=== PATIENT | male | born 1950 | race Caucasian/White ===

== ENCOUNTER 2024-08-13 06:30 | Observation (INO) ==
--- NOTE | 2024-07-09 11:03 | PAT Medication Instructions ---
Medication Instructions Date of Service July 09, 2024 Home Medications Medication Instructions Recorded amlodipine 10 mg tablet 10 mg PO QAM #90 tabs 09/25/23 lisinopril 40 mg tablet 40 mg PO QAM #90 tabs 09/25/23 hydrochlorothiazide 25 mg tablet 25 mg PO QAM #90 tabs 12/31/23 doxazosin 8 mg tablet 8 mg PO HS #90 tabs 02/11/24 tamsulosin 0.4 mg capsule (Flomax) 0.8 mg (2 x 0.4 mg) PO HS #180 caps 02/24/24 trazodone 50 mg tablet 50 mg PO HS #90 tabs 02/24/24 ipratropium bromide 21 mcg (0.03 2 spray intranasal BID #30 mL 02/26/24 %) nasal spray multivit,Ca,min-iron 8 mg-folic acid 200 mcg-lycopene 600 mcg tablet (Centrum Men) 1 tab PO QAM psyllium husk 3.4 gram/5.4 gram oral powder (Metamucil) 1 tbsp PO QAM sildenafil 100 mg tablet 100 mg PO UD PRN sexual activity tavaborole 5 % topical solution with applicator 1 applic topical DAILY amlodipine 10 mg tablet 10 mg PO QAM lisinopril 40 mg tablet 40 mg PO QAM ferrous gluconate 256 mg (28 mg iron) tablet 256 mg PO Q2D hydrochlorothiazide 25 mg tablet 25 mg PO QAM mecobalamin (vitamin B12) 500 mcg chewable tablet 500 mcg PO DAILY doxazosin 8 mg tablet 8 mg PO HS tamsulosin 0.4 mg capsule (Flomax) 0.8 mg (2 x 0.4 mg) PO HS trazodone 50 mg tablet 50 mg PO HS ipratropium bromide 21 mcg (0.03 %) nasal spray 2 spray intranasal BID amoxicillin 500 mg tablet 2,000 mg PO UD PRN dental procedures buspirone 10 mg tablet 10 mg PO HS cholecalciferol (vitamin D3) 50 mcg (2,000 unit) capsule (Vitamin D3) 50 mcg PO HS imiquimod 5 % topical cream packet 1 applic topical UD metformin 500 mg tablet,extended release 24 hr 500 mg PO BIDWMEAL weight loss Continue as directed amoxicillin 500 mg tablet 2,000 mg PO UD PRN dental procedures (if needed) STOP taking 24 hours before surgery sildenafil 100 mg tablet 100 mg PO UD PRN sexual activity tavaborole 5 % topical solution with applicator 1 applic topical DAILY imiquimod 5 % topical cream packet 1 applic topical UD DO NOT take the morning of surgery multivit,Ca,min-iron 8 mg-folic acid 200 mcg-lycopene 600 mcg tablet (Centrum Men) 1 tab PO QAM psyllium husk 3.4 gram/5.4 gram oral powder (Metamucil) 1 tbsp PO QAM lisinopril 40 mg tablet 40 mg PO QAM ferrous gluconate 256 mg (28 mg iron) tablet 256 mg PO Q2D hydrochlorothiazide 25 mg tablet 25 mg PO QAM mecobalamin (vitamin B12) 500 mcg chewable tablet 500 mcg PO DAILY metformin 500 mg tablet,extended release 24 hr 500 mg PO BIDWMEAL weight loss Take morning of surgery With a small sip of water, OTHERWISE NOTHING TO EAT OR DRINK AFTER MIDNIGHT: amlodipine 10 mg tablet 10 mg PO QAM ipratropium bromide 21 mcg (0.03 %) nasal spray 2 spray intranasal BID Take evening before surgery doxazosin 8 mg tablet 8 mg PO HS tamsulosin 0.4 mg capsule (Flomax) 0.8 mg (2 x 0.4 mg) PO HS trazodone 50 mg tablet 50 mg PO HS ipratropium bromide 21 mcg (0.03 %) nasal spray 2 spray intranasal BID buspirone 10 mg tablet 10 mg PO HS cholecalciferol (vitamin D3) 50 mcg (2,000 unit) capsule (Vitamin D3) 50 mcg PO HS metformin 500 mg tablet,extended release 24 hr 500 mg PO BIDWMEAL weight loss Other Notes If you have any questions please call us at [phone] or [phone] or [phone] or [phone]
--- NOTE | 2024-07-13 12:03 | Anesthesiology Consultation ---
Date of Service July 13, 2024 Assessment & Plan (1) Encounter for pre-operative examination: Chart Review Chart Review: Acceptable Risk for Surgery and Patient seen in Pre Admission Testing - Discussed with Dr. Bloom due to pulmonary hx and SUSANA/BMI- it is recommended patient be changed from OPJ to 23 hour obs. Surgeon's office informed. Surgeon's office updated OR and patient. Possible ChloraPrep allergy with previous surgery (had rash post op above incision and was told possible reaction to ChloraPrep)- patient was instructed NOT to use chlorhexidine wipes. Patient can discuss with surgeon DOS of what type of prep to use - Check BSG AM DOS Per PAT appt on 07/13/24, no recent illness/disease exposures, illness related symptoms, or recent illness/disease positive tests. Will leave to surgeon's discretion if preop Covid testing needed Seen by cardio 06/15/24= seen for cardiology follow up. Mild ascending aorta dilatation. Suspected CVI. Hypertension. Type 2 DM. Patient doing well from a cardiac standpoint. Remains active without limiting cardiac symptoms. On exam no signs of heart failure. Recent echo stable. Plan to repeat in 2 years. Teaching & Discussion Pre-Anesthesia Teaching/Discussion Notes: Instructed NPO after midnight before surgery,except medications with 15 cc of water. Medication instructions provided according to the PAT guidelines. History Surgery Operation Date: 08/13/24 09:00 Proposed Procedures p Left Anatomic Total Shoulder Arthroplasty Versus Left Reverse Total Shoulder Arthroplasty - Oniel Rao, Height/Weight Height: 5 ft 11 in Weight: 137.8 kg Allergies Allergy/AdvReac Type Severity Reaction Status Date / Time chlorhexidine Allergy Intermediate Possible Verified 07/14/24 11:21 [From ChloraPrep Clear] allergy- rash isopropyl alcohol Allergy Intermediate Possible Verified 07/14/24 11:21 [From ChloraPrep Clear] allergy- rash Medications Home Medications Medication Instructions Recorded Confirmed Last Taken multivit,Ca,min-iron 8 mg-folic 1 tab PO QAM 06/03/23 07/08/24 09/28/23 acid 200 mcg-lycopene 600 mcg tablet (Centrum Men) psyllium husk 3.4 gram/5.4 gram 1 tbsp PO QAM regularity 06/03/23 07/08/24 09/27/23 oral powder (Metamucil) sildenafil 100 mg tablet 100 mg PO UD PRN sexual activity 12/27/23 10/17/24 Unknown tavaborole 5 % topical solution 1 applic topical DAILY 09/17/23 07/08/24 09/27/23 with applicator amlodipine 10 mg tablet 10 mg PO QAM #90 tabs 09/25/23 07/08/24 09/28/23 lisinopril 40 mg tablet 40 mg PO QAM #90 tabs 09/25/23 07/08/24 09/28/23 ferrous gluconate 256 mg (28 mg 256 mg PO Q2D 12/31/23 07/08/24 Unknown iron) tablet hydrochlorothiazide 25 mg tablet 25 mg PO QAM #90 tabs 12/31/23 07/08/24 Unknown mecobalamin (vitamin B12) 500 mcg 500 mcg PO DAILY 12/31/23 07/08/24 Unknown chewable tablet doxazosin 8 mg tablet 8 mg PO HS #90 tabs 02/11/24 07/08/24 Unknown tamsulosin 0.4 mg capsule (Flomax) 0.8 mg (2 x 0.4 mg) PO HS #180 caps 02/24/24 07/08/24 Unknown trazodone 50 mg tablet 50 mg PO HS #90 tabs 02/24/24 07/08/24 Unknown ipratropium bromide 21 mcg (0.03 2 spray intranasal BID #30 mL 02/26/24 07/08/24 Unknown %) nasal spray amoxicillin 500 mg tablet 2,000 mg PO UD PRN dental 07/08/24 07/08/24 Unknown procedures buspirone 10 mg tablet 10 mg PO HS 07/08/24 07/08/24 Unknown cholecalciferol (vitamin D3) 50 50 mcg PO HS 07/08/24 07/08/24 Unknown mcg (2,000 unit) capsule (Vitamin D3) imiquimod 5 % topical cream packet 1 applic topical UD 07/08/24 07/08/24 Unknown metformin 500 mg tablet,extended 500 mg PO BIDWMEAL weight loss 07/08/24 07/08/24 Unknown release 24 hr Past Medical History Medical History (Updated 07/14/24 @ 10:58 by Dora Irving PA-C) Anemia borderline/low rbc count...odd shaped blood cells...hx several oncology visits -no findings - no longer follows with heme Chronic rhinitis Chronic venous insufficiency Constipation Degenerative disc disease, lumbar Diverticulitis hx- no recent flares Elevated hemoglobin A1c borderline, hx>no current issues Hgb A1C 5.6 on 07/13/24 patient states on Metformin for weight loss (Type II DM in cardio records) Enlarged aorta monitored yearly with no change size; f/u Dr. Mota Per 05/2024 ECHO- "borderline ascending aorta at 3.7cm" Enlarged prostate Erectile dysfunction Extreme obesity reason for metformin>put on medication by his "weight dr" Fatty liver Heart murmur Dr. Mota- no significant valvular disease on 05/2024 ECHO History of COVID-19 06/02/24>resolved History of deviated nasal septum Minimal deviation per patient - did have sinus surgery 2010 Hypertension Leukopenia borderline LPRD (laryngopharyngeal reflux disease) hx MOLLY (mycobacterium avium-intracellulare) - 2021- s/p lung surgical bx (wedge resection of lung mass) May 2022. Following with infectious disease- monitoring recommended at present. - No current tx.; gets yearly CT scan to monitor - breathing stable Nocturia Sleep apnea cpap Wart of hand multiple hands Exercise / Class Metabolic Activity III < 4 Walking/Shop/Light housework (one flight of stairs - no chest pain or SOB - goes slow ) Past Family History Family History Brother AA (alcohol abuse) Lung cancer Father AA (alcohol abuse) Diabetes Sister Family history of uterine cancer Gall bladder disease Mother Gall bladder disease Past Surgical History Surgical History H/O colonoscopy History of appendectomy History of back surgery hardware. lumbar. History of esophagogastroduodenoscopy (EGD) History of lung biopsy robotically. 2021. abdominal bulge occured day after procedure/ct scan done to r/o hernia , pt reports he was told probably due to irritation of nerve. Pulmonoglist , Dr. Grimm. History of nasal septoplasty History of total left knee replacement History of total right knee replacement History of uvulopalatopharyngoplasty Past Anesthesia History No Hx of Anesthesia Complications and No Family Hx of Anesthesia Complications History of PONV No Hx of PONV and No Hx of Motion Sickness Social History Smoking Status: Former smoker Do You Dip or Chew Tobacco: No (quit 1985; advised by nursing ) Smoking End Date: 1985 Hx Alcohol Use: Yes Alcohol type: beer and wine alcohol intake frequency: holidays/special occasions only Hx Substance Use: No substance use type: does not use Review of Systems - Chronic post nasal drip - stable - Silent reflux per patient from ENT - Possible blood transfusion - 2020- with back surgery Patient denies chest pain, shortness of breath, dyspnea on exertion, cough, wheezing, palpitations. No hx of seizures, stroke, VT. No hx of blood clots Physical Exam Vital Signs VITALS BP 151/70 P 66 TEMP 97.7 SP02 96% RESP 16 Constitutional no acute distress ENMT Mouth: + small oral opening; no TMJ clicking Thyromental Distance: < 3.5 Finger Breadths (3.0) Mallampati Class: IV Permanent side implant Crowns to molars and side teeth Neck + limited neck extension (mild) Respiratory normal respiratory effort; no respiratory distress Auscultation: lungs clear to auscultation bilaterally; no wheezes Cardiovascular Rate/Rhythm: regular rate and regular rhythm Heart Sounds: + murmur (II/ murmur ) Vessels: no carotid bruit Musculoskeletal Spine: + pain with cervical ROM (mild) Extremities: extremities normal to inspection Psychiatric Orientation: alert Lab Results Anesthesia Preop Results Results Anesthesia Widget: WBC 3.59 K/ul (4.8-10.8) L 07/13/24 Hgb 12.5 g/dl (14.0-18.0) L 07/13/24 Hct 36.9 % (42.0-52.0) L 07/13/24 Plt 195 K/uL (130-400) 07/13/24 Na 137 mmol/L (136-145) 07/13/24 K 3.7 mmol/L (3.5-5.1) 07/13/24 Cl 103 mmol/L (98-107) 07/13/24 CO2 27 mmol/L (21-32) 07/13/24 BUN 17 mg/dl (6-23) 07/13/24 Creat 0.86 mg/dl (0.6-1.4) 07/13/24 Glucose Level 107 mg/dl (70-99(Fasting)) H 07/13/24 PT 11.0 Seconds (9.0-12.0) 07/13/24 PTT 28 Seconds (21-31) 07/13/24 INR 1.0 (0.9-1.1) 07/13/24 TSH 1.606 uIu/ml (0.300-4.500) 05/25/24 HA1c 5.6 % (4.5-5.6) 07/13/24 Blood Type B Positive 07/13/24 Antibody Screen NEGATIVE 07/13/24 Testing Electrocardiogram Date: 07/14/24 SR with 1st degree AVB at 62bpm Otherwise normal EKG per cardio Chest X-Ray Date: 07/13/24 FINDINGS: Lung volumes are normal. No consolidation is identified to suggest pneumonia. Postoperative findings within the right lower lobe are noted. The subpleural opacity on CT of October 31, 2023 is not well-visualized by radiography. There is no pneumothorax or pleural effusion. Mild cardiomegaly is noted. Mediastinal contours are normal. There is no evidence for pulmonary edema. IMPRESSION: No acute cardiopulmonary findings. Stable cardiomegaly. Echocardiogram Date: 06/11/24 EF: 55-60% LV Function: normal RWMA: + none Other Findings: + LVH (mild/concentric ) Mildly dilated RV, normal RV function AV sclerosis - moderate. No hemodynamically significant aortic stenosis Mild pulm HTN. Estimated PA 40-45mmHg. Est RA 15mmHg Borderline ascending aorta (3.7cm) Mildly dilated inferior vena cava Trivial pericardial effusion not hemodynamically significant Compared with prior study on 07/15/2023- mild pulm HTN is new. No other significant findings Stress Test Date: 03/10/20 Type: exercise No evidence of EKG changes to suggest ischemia Patient's exercise capacity is normal for age Calculated Schilling Treadmill Score of 4 (this is an intermediate risk score, which indicates a five year survival rate of 90%) Other Testing Chest CT 10/31/23= Findings suggestive of prior right lower lobe wedge resection. Stable right basilar nodular density compared to the 02/26/2023 exam, decreased in size and conspicuity compared to 06/19/2022. Findings are suggestive of scarring with round atelectasis. 6 month follow-up chest CT recommended. Unchanged right basilar pleural thickening with trace pleural effusion. No pneumothorax.
--- NOTE | 2024-08-11 07:45 | History & Physical Report ---
Date of Service August 11, 2024 Assessment & Plan (1) Osteoarthritis of left shoulder: We will proceed with a left anatomic total shoulder arthroplasty. Postoperatively he will be placed in a sling and kept overnight hospital for postop medical management. He plans to use energy physical therapy upon disch arge. History of Present Illness Chief Complaint: Osteoarthritis of the left shoulder. Primary Care Provider: Gal Krueger MD Jeanna is a pleasant 74-year-old male who has been dealing with chronic increasing left shoulder pain. I diagnosed him with advanced arthritis of his left shoulder at a previous visit. I gave him injections. The injections are not helping. He is really struggling doing things away from his body or up overhead. He is having trouble sleeping at night. And he failed conservative treatment, he has elected proceed with a left anatomic total shoulder arthroplasty. Allergies Allergy/AdvReac Type Severity Reaction Status Date / Time chlorhexidine Allergy Intermediate Possible Verified 08/02/24 08:04 [From ChloraPrep Clear] allergy- rash isopropyl alcohol Allergy Intermediate Possible Verified 08/02/24 08:04 [From ChloraPrep Clear] allergy- rash Home Medications Medication Instructions Recorded Confirmed Type multivit,Ca,min-iron 8 mg-folic 1 tab PO QAM 06/03/23 08/02/24 History acid 200 mcg-lycopene 600 mcg tablet (Centrum Men) psyllium husk 3.4 gram/5.4 gram 1 tbsp PO QAM regularity 06/03/23 08/02/24 History oral powder (Metamucil) sildenafil 100 mg tablet 100 mg PO UD PRN sexual activity 09/17/23 08/02/24 History tavaborole 5 % topical solution 1 applic topical DAILY 09/17/23 08/02/24 History with applicator amlodipine 10 mg tablet 10 mg PO QAM #90 tabs 09/25/23 08/02/24 Rx lisinopril 40 mg tablet 40 mg PO QAM #90 tabs 09/25/23 08/02/24 Rx ferrous gluconate 256 mg (28 mg 256 mg PO Q2D 12/31/23 08/02/24 History iron) tablet hydrochlorothiazide 25 mg tablet 25 mg PO QAM #90 tabs 12/31/23 08/02/24 Rx mecobalamin (vitamin B12) 500 mcg 500 mcg PO DAILY 12/31/23 08/02/24 History chewable tablet doxazosin 8 mg tablet 8 mg PO HS #90 tabs 02/11/24 08/02/24 Rx tamsulosin 0.4 mg capsule (Flomax) 0.8 mg (2 x 0.4 mg) PO HS #180 caps 02/24/24 08/02/24 Rx trazodone 50 mg tablet 50 mg PO HS #90 tabs 02/24/24 08/02/24 Rx ipratropium bromide 21 mcg (0.03 2 spray intranasal BID #30 mL 02/26/24 08/02/24 Rx %) nasal spray amoxicillin 500 mg tablet 2,000 mg PO UD PRN dental 07/08/24 08/02/24 History procedures cholecalciferol (vitamin D3) 50 50 mcg PO HS 07/08/24 08/02/24 History mcg (2,000 unit) capsule (Vitamin D3) imiquimod 5 % topical cream packet 1 applic topical UD 07/08/24 08/02/24 History metformin 500 mg tablet,extended 500 mg PO BIDWMEAL weight loss 07/08/24 08/02/24 History release 24 hr buspirone 10 mg tablet 10 mg PO HS #90 tabs 08/02/24 Rx Past Med/Surg History Problem List Osteoarthritis of left shoulder Nasal valve collapse History of deviated nasal septum LPRD (laryngopharyngeal reflux disease) Chronic rhinitis Rotator cuff arthropathy Constipation Encounter for pre-operative examination Abnormal CT scan of lung BPH associated with nocturia Erectile dysfunction Weakness Shoulder impingement Testicular cyst Hematuria Obstructive sleep apnea BMI 40.0-44.9, adult Iron deficiency Mild ascending aorta dilatation Chronic venous insufficiency History of knee replacement Fatty liver Arthritis Anemia History of colon polyps x1 Medical History History of COVID-19 06/02/24>resolved MOLLY (mycobacterium avium-intracellulare) - 2021- s/p lung surgical bx (wedge resection of lung mass) May 2022. Following with infectious disease- monitoring recommended at present. - No current tx.; gets yearly CT scan to monitor - breathing stable LPRD (laryngopharyngeal reflux disease) hx History of deviated nasal septum Minimal deviation per patient - did have sinus surgery 2010 Erectile dysfunction Constipation Chronic venous insufficiency Chronic rhinitis Extreme obesity reason for metformin>put on medication by his "weight dr" Degenerative disc disease, lumbar Diverticulitis hx- no recent flares Fatty liver Sleep apnea cpap Enlarged aorta monitored yearly with no change size; f/u Dr. Mota Per 05/2024 ECHO- "borderline ascending aorta at 3.7cm" Heart murmur Dr. Mota- no significant valvular disease on 05/2024 ECHO Elevated hemoglobin A1c borderline, hx>no current issues Hgb A1C 5.6 on 07/13/24 patient states on Metformin for weight loss (Type II DM in cardio records) Nocturia Wart of hand multiple hands Enlarged prostate Leukopenia borderline Anemia borderline/low rbc count...odd shaped blood cells...hx several oncology visits -no findings - no longer follows with heme Hypertension Surgical History History of esophagogastroduodenoscopy (EGD) History of nasal septoplasty History of uvulopalatopharyngoplasty History of total left knee replacement History of total right knee replacement History of lung biopsy robotically. 2021. abdominal bulge occured day after procedure/ct scan done to r/o hernia , pt reports he was told probably due to irritation of nerve. Pulmonoglist , Dr. Grimm. H/O colonoscopy History of appendectomy History of back surgery hardware. lumbar. Family History Brother AA (alcohol abuse) Lung cancer Father AA (alcohol abuse) Diabetes Sister Family history of uterine cancer Gall bladder disease Mother Gall bladder disease Social History Smoking Status: Former smoker Tobacco Type: Cigarettes and Cigars Age Started Using Tobacco: 17; Age Quit Using Tobacco: 36; Smoking End Date: 1985; Second Hand Exposure: No; Do You Dip or Chew Tobacco: No (quit 1985; advised by nursing ); Tobacco Cessation Education Requested by Patient: No Hx Alcohol Use: Yes Alcohol type: beer and wine Hx Substance Use: No Preferred Language: Thai Communication Ability: Effective Visual Impairment: No Limitations Hearing Ability: Normal Steward/Stewardess Tourist Class Required: No Beliefs That Will Affect Care: None marital status: / Current Living Situation: Significant Other current occupational status: retired Other Information That Helps Us Care for You: No Feels Safe at Home: Yes Safety Concerns: Feels Safe At This Time Childhood Exposure to Second-Hand Smoke: No Dental Care, Regularly: Yes Physical Activity Frequency: 1-2 Times per Week Seatbelt Use: always Assistive Devices: CPAP and Glasses Review of Systems All systems reviewed & are unremarkable except as noted in HPI & below. Physical Exam On physical exam the left shoulder, he has decreased range of motion. He has pain with internal/external rotation. He has good strength throughout. He has crepitus with range of motion.. Constitutional WD/WN, vitals as above Eyes PERRL, conjunctivae normal, anicteric sclerae ENMT external ear and nose normal, oropharynx normal Neck trachea midline, no thyromegaly Respiratory normal respiratory effort Cardiovascular RRR, no murmur, no edema Gastrointestinal (Abdomen) normal bowel sounds, soft, nontender, no hepatosplenomegaly Psychiatric A+Ox3, euthymic affect Results & Data Results & Data Laboratory Results . Diagnostic Findings X-rays of the left shoulder show advanced osteoarthritis with joint space narrowing, osteophyte formation, and [id number] tubulation. PG Care Time/CCT Total # of Minutes Spent Total Time Spent with Patient: Total time spent is greater than 50% in coordination of care (as documented) at patient's floor/unit and/or counseling patient: Coding Level of Care Code None Diagnoses Osteoarthritis of left shoulder M19.012
--- NOTE | 2024-08-13 06:16 | History & Physical Bridge Note ---
Date of Service August 13, 2024 History & Physical Bridge Note I have examined the patient, reviewed the History & Physical and in the interval since the performance of the History & Physical I have noted the following changes of clinical significance: no changes noted
[~2024-08-13 06:30] MED LIST: BUPIVACAINE 0.5 % 5 MG/1 ML PF 10ML VIAL ONE
[2024-08-13] MEDS ORDERED: MIDAZOLAM HCL 1 MG/ML 2ML VIAL ONE (07:12)
[2024-08-13] MEDS ORDERED: ROCURONIUM BROMIDE 10 MG/ML 5 ML VIAL IV ONE ×2 (07:12→08:28)
[2024-08-13] MEDS ORDERED: LIDOCAINE 2% 2 ML VIAL/AMP(20MG/ML) INFIL ONE (07:12)
[2024-08-13] MEDS ORDERED: PROPOFOL IV EMULSION 10 MG/ML 20 ML VIAL IV ONE ×3 (07:12→11:32)
[2024-08-13] MEDS ORDERED: fentaNYL citrate PF 100 MCG/2 ML VIAL ONE (07:12)
[2024-08-13] MEDS: LR 60ML/HR IV SCH (07:14)
[2024-08-13] MEDS: LR 15ML/HR IV SCH (07:14)
[2024-08-13] MEDS: dexAMETHasone**PF** 10 MG/ML VIAL IV SCH (07:15)
[2024-08-13] MEDS: ACETAMINOPHEN 500 MG TAB PO SCH ×2 (07:15→13:46)
[2024-08-13] MEDS: FAMOTIDINE 20 MG TAB PO SCH (07:15)
[2024-08-13] MEDS: GABAPENTIN 300 MG CAP PO SCH (07:15)
[2024-08-13] MEDS ORDERED: BUPIVACAINE 0.25% PF 30 ML VIAL ONE (07:45)
[2024-08-13] MEDS: TRANEXAMIC ACID 1,000 MG **IV Pre-op IV SCH (07:49)
[2024-08-13] MEDS: ceFAZolin 3000MG 3,000 MG/72.5 ML BAG IV SCH (08:00)
[2024-08-13] MEDS ORDERED: ONDANSETRON INJ 2 MG/ML 2 ML VIAL ONE (08:22)
[2024-08-13] MEDS ORDERED: HYDROmorphone INJ 1 MG/ML SYRINGE IV PRN (08:33)
[2024-08-13] MEDS ORDERED: ATROPINE SULFATE 0.1 MG/ML 10ML SYR IV PRN (08:33)
[2024-08-13] MEDS ORDERED: ONDANSETRON INJ 2 MG/ML 2 ML VIAL IV PRN ×2 (08:33→11:13)
[2024-08-13] MEDS ORDERED: ePHEDrine sulfate 50 MG/ML AMP IV PRN (08:33)
[2024-08-13] MEDS ORDERED: ePHEDrine sulfate 50 MG/5 ML SYR ONE (08:36)
[2024-08-13] MEDS: ORTHO JOINT ANESTHETIC ONE (08:51)
[2024-08-13] MEDS: TRANEXAMIC ACID 1,000 MG **IV Intra-op IV SCH (09:10)
[2024-08-13] MEDS: ROPIV 0.5% 246mg, Ketorolac 30mg, EPINEPHrine 0.5mg in NSS INFIL SCH (09:10)
[2024-08-13] MEDS ORDERED: SUGAMMADEX SODIUM 200 MG/2 ML VIAL IV ONE (09:21)
--- NOTE | 2024-08-13 09:23 | Operative Report ---
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 A tenodesis was opted. This was a separate and distinct portion of the procedure. For these reasons, a CPT code modifier 59 will be added to this case. Implants used: I used a [employer] Comprehensive total shoulder arthroplasty system with a size 17 press fit micro humeral stem, a size 46 x 18 eccentric humeral head, and a size 4 glenoid with a trabecular metal peg. The glenoid was cemented in place with Palacos G cement. Jeanna arrived at [facility] for the above procedure. He was seen in the preoperative holding area and the operative extremity was identified and signed. He was given a preoperative antibiotic, TXA, and an interscalene nerve block. He was taken back to the operating room, laid on table in supine position, and put under general anesthesia. He was then put into the beachchair position. The shoulder was then prepped and draped in sterile fashion. A timeout was done and the patient and the operative extremity was properly identified. A deltopectoral approach was used. Dissection was taken down through the fascia and the deltoid was retracted laterally and the conjoined tendon was retracted medially. The anterior shoulder was exposed. The biceps groove was opened up and the biceps tendon was examined extensively. The biceps tendon demonstrated enlargement and inflammatory changes consistent with longstanding inflammation in the context of osteoarthritis. The long head of the biceps tendon was then tenodesed to the upper border of the pectoralis major. This was a separate and distinct portion of the procedure. The subscapularis was then released off the lesser tuberosity with a centimeter of cuff tissue remaining. The inferior capsule was released and the humeral head was dislocated. The rotator cuff was inspected and intact. A canal finding reamer was sent down the center of the humeral canal. Sequential reaming up to a size 17 reamer was done. Offset reamer a proximal humeral resection guide was placed. The proximal humerus was resected at 135 of inclination and 30 of retroversion. Inferior osteophytes were then removed and the glenoid was exposed. Time was spent doing an appropriate labral release. The glenoid measured to be a size 4. A 3.2 mm Steinmann pin was placed in the central hole of the glenoid vault pin guide. The glenoid was then reamed with a propeller reamer. The central post cutter was then used to prepare for the central boss. The cannulated peripheral peg drill guide was then placed and 3 peg holes were drilled. The final size 4 glenoid was then cemented in place with Palacos G cement. Surrounding soft tissues were then injected with 100 cc of an orthopedic pain control cocktail. Once cement had dried the proximal humerus was once again exposed. Sequential broaching of the humerus up to a size 17 broach was done. Off that broach a size 46 x 18 eccentric humeral head was trialed. The shoulder was then reduced, brought through a full range of motion, and felt to be stable. The shoulder was then dislocated and the broach was removed. The final size 17 micro humeral stem implant was then impacted into place. A size 46 x 18 eccentric humeral head was then impacted onto the humeral stem. The shoulder was then reduced and once again brought through a full range of motion and felt to be stable. The subscapularis was then tenodesed back to the lesser tuberosity with transosseous FiberWire sutures and side to side sutures with the arm in 45 of external rotation. 2 sutures were placed in the lateral rotator interval. A dilute betadyne lavage was then done for 3 minutes. The joint was then irrigated with normal saline solution. Hemostasis was obtained. The interval was closed with 2-0 Vicryl suture. The skin was closed with 2-0 Vicryl and nagi. A Silverlon dressing was placed and the arm was rested in a regular arm sling. He was then extubated and transferred to a hospital bed. He was taken to the postanesthesia care unit in stable condition. He tolerated the procedure well. Andre Kendall PA-C, was present for the entire procedure. He was critical for patient positioning, prepping, draping, retraction exposure, wound closure and application of sterile dressing. I attest to the content of the Intraoperative Record and any orders documented therein. Any exceptions are noted below.
[2024-08-13] MEDS: fentaNYL citrate PF 100 MCG/2 ML VIAL IV PRN (10:18)
--- NOTE | 2024-08-13 10:38 | XRay Report ---
XR shoulder LT min 2V routine CLINICAL HISTORY: Post shoulder surgery COMPARISON: Left shoulder radiographs February 24, 2024. FINDINGS: Alignment of the left shoulder arthroplasty is anatomic. There is no periprosthetic fractu re or unexpected radiopaque foreign body. There are skin nagi. IMPRESSION: Expected findings following left shoulder arthroplasty. ACT 112: Negative or not required by law. Electronically signed by: Patrick Patel M.D. 08/13/2024 10:37 AM
[2024-08-13] MEDS ORDERED: HYDROmorphone INJ 0.5 MG/0.5 ML SYR IV PRN (11:13)
[2024-08-13] MEDS ORDERED: METOCLOPRAMIDE HCL INJ 5 MG/ML 2 ML VIAL IV PRN (11:13)
[2024-08-13] MEDS ORDERED: NALOXONE HCL 0.4 MG/1 ML VIAL/CARP IV PRN (11:13)
[2024-08-13] MEDS ORDERED: oxyCODONE HCL IR 5 MG TAB (IMMEDIATE RELEASE) PO PRN (11:13)
[2024-08-13] MEDS ORDERED: bisacodyL 10 MG SUPP PR PRN (11:13)
[2024-08-13] MEDS ORDERED: MAGNESIUM HYDROXIDE SUSP 30 ML UDC PO PRN (11:13)
[2024-08-13] MEDS: KETOROLAC TROMETHAMINE 15 MG/ML VIAL IV SCH (12:03)
[2024-08-13] MEDS: metFORMIN HCL ER 500 MG TABCR PO SCH (12:39)
[2024-08-13] MEDS: FERROUS GLUCONATE 324 MG TAB PO SCH (12:39)
--- NOTE | 2024-08-13 14:43 | Anesthesiology Progress Note ---
Date of Service August 13, 2024 Anesthesia Post Procedure Vital Signs Vital Signs: Temp Pulse Pulse Resp BP Pulse Ox O2 Del Method 08/13/24 13:09 36.3 C L 91 H 20 142/72 H 95 Room Air 08/13/24 12:18 Nasal Cannula, CPAP 08/13/24 12:07 81 20 114/73 95 Nasal Cannula 08/13/24 11:44 36.5 C 79 20 123/61 93 Nasal Cannula 08/13/24 11:10 36.8 C 79 18 115/64 90 Nasal Cannula 08/13/24 10:55 79 18 93/74 L 93 Nasal Cannula 08/13/24 10:45 80 10 L 101/69 94 Nasal Cannula 08/13/24 10:35 81 16 93/67 L 95 Nasal Cannula 08/13/24 10:25 82 15 106/67 92 Oxymask 08/13/24 10:15 36.6 C 83 18 108/62 93 Oxymask 08/13/24 10:05 84 18 125/69 93 Oxymask 08/13/24 09:55 88 19 100/67 94 Oxymask 08/13/24 09:47 36.1 C L 90 15 104/58 L 94 Oxymask 08/13/24 06:58 37.0 C 88 20 168/83 H 96 Room Air O2 Flow Rate 08/13/24 13:09 0 08/13/24 12:18 1 08/13/24 12:07 1 08/13/24 11:44 2 08/13/24 11:10 2 08/13/24 10:55 2 08/13/24 10:45 2 08/13/24 10:35 2 08/13/24 10:25 3 08/13/24 10:15 3 08/13/24 10:05 3 08/13/24 09:55 6 08/13/24 09:47 6 08/13/24 06:58 Pain Intensity Left Shoulder: Pain Intensity: 5 Transfer of Care Handoff Completed per policy Notes Mental Status: alert / awake / arousable and participated in evaluation Patient Amnestic to Procedure: Yes Nausea / Vomiting: adequately controlled Pain: adequately controlled Airway Patency, RR, SpO2: stable & adequate BP & HR: stable & adequate Hydration State: stable & adequate Anesthetic Complications: no major complications apparent and Pt Satisfied with anesthetic care
[2024-08-13] MEDS: ceFAZolin 2000MG 2,000 MG/15 ML SYR IV SCH (16:21)
[2024-08-13] MEDS: DOXAZosin MESYLATE 4 MG TAB PO SCH (20:39)
[2024-08-13] MEDS: TAMSULOSIN HCL 0.4 MG CAP PO SCH (20:39)
[2024-08-13] MEDS: SENNA 8.6 MG TAB PO SCH (20:39)
[2024-08-13] MEDS: DOCUSATE SODIUM 100 MG CAP PO SCH (20:39)
[2024-08-13] MEDS: CHOLECALCIFEROL 25 MCG (1000 UNITS) TAB PO SCH (20:39)
[2024-08-13] MEDS: traZODone HCL 50 MG TAB PO SCH (20:39)
[2024-08-13] MEDS: busPIRone 5 MG TAB PO SCH (20:39)
[2024-08-14] MEDS: dexAMETHasone 4 MG TAB PO SCH (08:03)
[2024-08-14] MEDS: lisinopril 40 MG TAB PO SCH (08:03)
[2024-08-14] MEDS: CYANOCOBALAMIN (B-12) 500 MCG TABLET PO SCH (08:04)
[2024-08-14] MEDS: amLODIPine BESYLATE 5 MG TAB PO SCH (08:04)
[2024-08-14] MEDS: hydroCHLOROthiazide 25 MG TAB PO SCH (08:04)
[2024-08-14] MEDS: CEROVITE ADV FORMULA TAB PO SCH (08:04)
[2024-08-14] MEDS: MULTIVITAMIN TAB PO SCH (08:04)
[2024-08-14] MEDS: PSYLLIUM or GUAR GUM FIBER 4GM PACKET PO SCH (08:09)
--- NOTE | 2024-08-14 09:25 | Discharge Summary ---
Date of Service August 14, 2024 Admission HPI (Per Admitting) Jeanna is a pleasant 74-year-old male who has been dealing with chronic increasing left shoulder pain. I diagnosed him with advanced arthritis of his left shoulder at a previous visit. I gave him injections. The injections are not helping. He is really struggling doing things away from his body or up overhead. He is having trouble sleeping at night. And he failed conservative treatment, he has elected proceed with a left anatomic total shoulder arthroplasty. Admission Exam (Per Admitting) On physical exam the left shoulder, he has decreased range of motion. He has pain with internal/external rotation. He has good strength throughout. He has crepitus with range of motion.. Principal Diagnosis Same as "Discharge Diagnosis" noted below under Discharge Instructions. Discharge Exam On physical exam of the left shoulder, the dressing is clean and dry. He is wearing his sling as instructed. The motor function has returned in his hand and his wrist.. Discharge Data Procedures Performed Operation Date: 08/13/24 08:00 Actual Procedures p Left Anatomic Total Shoulder Arthroplasty(Left) - Oniel Rao DO Ordered Studies 08/13/24 05:00 US - OR guided needle placemen Routine Hospital Course (1) Status post replacement of left shoulder joint: On August 13, 2024 Julissa arrived at [facility] and underwent a left shoulder replacement without complication. He had a general anesthetic and a left interscalene nerve block. Postoperatively he was placed in a sling and transferred to the general orthopedic floors. His hospital course was uneventful. On postop day #1, his vital signs were stable and his pain was well-controlled. He was able to participate well with physical therapy doing ambulation and range of motion exercises. He was then discharged to home. He will follow-up with orthopedics in 2 weeks. PG Care Time/CCT Total # of Minutes Spent Total Time Spent with Patient: Total time spent is greater than 50% in coordination of care (as documented) at patient's floor/unit and/or counseling patient: Discharge Plan Discharge Items Patient Disposition: Home - Self-Care Reason For Visit: LEFT TOTAL SHOULDER REPLACEMENT Discharge Diagnosis: Left shoulder replacement Activity: Per Instructions section Non-emergency contact: Surgeon Call non-emergency contact if: your wound has increased redness and your wound has increased drainage Follow-up/Referrals: Pro,Gal Becerra MD [Primary Care Provider] - Diet: Regular Addtl Attending Provider Instructions: Activity and Therapy Recommendations: * If you are using [facility] then therapy will be provided at your home until they feel you have accomplished all of your goals. * If you are using [facility] then Physical Therapy will be provided until they feel you are ready to start Outpatient Physical Therapy. * If you are not using home therapy then Outpatient Physical Therapy should start about 3-5 days from your day of surgery. Therapy will last about 8-12 weeks * Wear your sling for 3 weeks, unless otherwise instructed. You may remove your sling to shower and to dress, but otherwise, you should be in your sling at all times, including while sleeping * The shoulder replacement is very stable and you can use your hand while in the sling * You were shown a series of exercises in the hospital. Do these exercises daily including the exercises you were shown in physical therapy. Medications: * Narcotic You will likely be sent home from the hospital with a prescription for the narcotic pain medication that worked best throughout your stay. * Cefadroxil -take the antibiotic twice a day for 10 days to help prevent infection. * Other medications may be prescribed for specific circumstances. If you have any questions, please call the office at . * Resume previous home medications unless otherwise instructed Dressing Care: Leave the Silverlon dressing in place for 7 days. After 7 days you may remove the dressing. If the incision is not draining then you may leave the nagi open to air. If there is a little bit of drainage or if the nagi are getting stuck on your clothing then cover the incision with a dry dressing. The nagi will be removed at your 2 week follow-up appointment. Showering: You may shower with the Silverlon dressing in place. Do not let the shower spray hit the dressing directly. Pat the Silverlon dressing dry. If the dressing becomes wet underneath, then simply remove the dressing. Keep the incision dry until you are 7 days out from the day of surgery. After 7 days you may remove the Silverlon dressing and shower with the nagi exposed. Let soapy water run over the nagi and pat them dry. Do not scrub or soak the incision. Diet: You may resume your previous diet. Things To Watch For: * Drainage from the incision site that occurs more than one week after your surgery. * Increased redness at the incision site. * Fever above 102 degrees Fahrenheit. * Unusual chest pain or shortness of breath. * Call [facility] at with any of the above problems Follow-Up Visit: Follow-up with Dr. Rao's office 2-3 weeks after your day of surgery. We will remove your nagi and answer any questions. If you have any additional questions or concerns, Dr Rao is usually in the o ffice at the same time and will be available An appointment was probably scheduled when you signed-up for surgery in the office. If you have any questions call More detailed instructions as well as Frequently Asked Questions were provided in a folder by our office when you signed-up for surgery. Please review these instructions when you get home. If you have any further questions or concerns, please feel free to call the office at [phone] Pending Studies at Discharge: No Stand-Alone Forms: My [facility], Smoking Cessation Medications and DC Order Prescriptions: New oxycodone 5 mg Tablet 5 mg PO Q4H PRN (Reason: pain) Qty: 30 0RF cefadroxil 500 mg capsule 500 mg PO BID 10 Days Qty: 20 0RF Continued doxazosin 8 mg tablet 8 mg PO HS Qty: 90 3RF tamsulosin [Flomax] 0.4 mg capsule 0.8 mg PO HS Qty: 180 3RF buspirone 10 mg tablet 10 mg PO HS Qty: 90 1RF trazodone 50 mg tablet 50 mg PO HS Qty: 90 1RF Metamucil 3.4 gram/5.4 gram powder 1 tbsp PO QAM Patient Comments: takes almost daily Rx Instructions: mix into at least 8 oz of water or juice before administering Centrum Men 8 mg iron- 200 mcg-600 mcg tablet 1 tab PO QAM lisinopril 40 mg tablet 40 mg PO QAM Qty: 90 3RF amlodipine 10 mg tablet 10 mg PO QAM Qty: 90 3RF ipratropium bromide 21 mcg (0.03 %) spray,non-aerosol 2 spray intranasal BID Qty: 30 3RF Rx Instructions: administer into each nostril ferrous gluconate 256 mg (28 mg iron) tablet 256 mg PO Q2D mecobalamin (vitamin B12) 500 mcg tablet,chewable 500 mcg PO DAILY hydrochlorothiazide 25 mg tablet 25 mg PO QAM Qty: 90 3RF sildenafil 100 mg tablet 100 mg PO UD PRN (Reason: sexual activity) Rx Instructions: Take at least 1 hour prior to need tavaborole 5 % Solution With Applicator 1 applic TOPICAL DAILY Patient Comments: toenails cholecalciferol (vitamin D3) [Vitamin D3] 50 mcg (2,000 unit) Capsule 50 mcg PO HS amoxicillin 500 mg tablet 2,000 mg PO UD PRN (Reason: dental procedures) Rx Instructions: 500 mg PO 4 tablets one hour prior to procedure ; imiquimod 5 % cream in packet 1 applic topical UD Rx Instructions: 1 applic topically; Apply to affected area 5 times a week(weekdays) metformin 500 mg tablet extended release 24 hr 500 mg PO BIDWMEAL Patient Comments: usually takes 1000mg QAM Discharge Orders: Discharge Order (Routine); Ordered 08/14/24 Ordered By: Oniel Rao Admission Data Admit Date/Time: 08/13/24 09:48 Attending Provider: Oniel Rao Admit Provider: Oniel Rao Primary Care Provider: Gal Krueger
--- NOTE | 2024-08-14 09:25 | Orthopedic Progress Note ---
Date of Service August 14, 2024 Assessment & Plan (1) Status post replacement of left shoulder joint: Overall he is doing very well. He is not having much pain in the left shoulder. He will be seen by physical therapy today for ambulation and range of motion exercises. He can be discharged home later today. He will follow-up with orthopedics in 2 weeks. Daylin Costa was seen and examined at bedside this morning. Overall is doing very well. He is not having much pain in the left shoulder. He has been up and ambulating to the bathroom. He has no complaints.. Review of Systems All systems reviewed & are unremarkable except as noted in HPI & below. Physical Exam On physical exam of the left shoulder, the dressing is clean and dry. He is wearing his sling as instructed. The motor function has returned in his hand and his wrist.. Results & Data Results & Data Laboratory Results . Diagnostic Findings Postoperative x-rays of the left shoulder show the prosthesis to be in anatomic alignment without any evidence of fracture, dislocation, or loosening.. PG Care Time/CCT Total # of Minutes Spent Total Time Spent with Patient: Total time spent is greater than 50% in coordination of care (as documented) at patient's floor/unit and/or counseling patient: Coding Level of Care Code 59280 Post Operative Follow-Up Diagnoses Status post replacement of left shoulder joint Z96.612
[2024-08-14 11:13] VITALS: BP 152/72; PULSE 74; RESP 20; TEMP 97.6; O2SAT 96
== END 2024-08-14 11:40 | disposition home or self-care (01) ==
LOC: ASU 06:30 → 3N 06:30